=== PATIENT | female | born 1975 | race Caucasian/White ===

== ENCOUNTER 2021-02-10 13:43 | Outpatient (REF) | payer MEDICAID, SELFPAY | END 2021-02-10 13:44 | disposition home or self-care (01) | LOC: HO.LAB 13:43 | PROVIDERS: Visit Provider Internal Medicine | DX: Z20.822 Contact with and (suspected) exposure to COVID-19 (principal) | CPT/HCPCS: C9803; U0003; U0005 ==

== ENCOUNTER 2021-04-30 15:34 | Outpatient (REF) | payer MEDICAID, SELFPAY ==
--- NOTE | ~2021-04-30 | XR_ITS ---
EXAMINATION: XR LUMBOSACRAL SPINE CLINICAL INFORMATION: Low back pain, unspecified COMPARISON: CT 06/19/2018 TECHNIQUE: Bilateral oblique, AP and lateral views of the lumbar spine with an additional coned down lateral spot view of the lumbosacral junction. FINDINGS: Hypoplastic bilateral 12th ribs are present. There are then 4 nonrib-bearing lumbar type vertebral bodies. There is transitional lumbosacral anatomy with a prominent left, mildly prominent right transverse process. The left transverse process forms a pseudoarticulation with the sacrum which can be a pain generator. Normal sagittal alignment. Vertebral body and disc heights are maintained without evidence of compression fracture. There is lower lumbar facet arthropathy most notable at L4-L5 and L5-S1. No pars defect seen on oblique views. XR/XR lumbar spine 4V min IMPRESSION: Transitional anatomy as described above. Recommend careful anatomic localization prior to any intervention or surgery. No acute osseous abnormality. Lower lumbar facet arthropathy at L4-L5 and L5-S1. Findings are similar to the prior study 06/19/2018.
== END 2021-04-30 15:35 | disposition home or self-care (01) ==
LOC: HO.XRAY 15:34
PROVIDERS: PCP Nurse Practitioner Family; Visit Provider Nurse Practitioner Family
DX: M54.50 Low back pain, unspecified (principal)
CPT/HCPCS: 72110

== ENCOUNTER 2021-06-27 13:06 | Emergency (ER) | payer MEDICAID, SELFPAY ==
--- NOTE | ~2021-06-27 | CT_ITS ---
EXAMINATION: CT head/brain wo con, CT cervical spine wo con INDICATION INFORMATION: Reason for Exam numbness right arm COMPARISON: None TECHNIQUE: Separate noncontrast CT examinations of the head and cervical spine were performed. Coronal and sagittal images were created for each examination at the technologist workstation. This CT examination was performed using dose optimization techniques as appropriate, variously including the following: *Automated exposure control *Adjustment of mA and/or kV according to patient size (this includes techniques or standardized protocols for targeted exams where dose is matched to indication/reason for exam; i.e. extremities or head) *Use of iterative reconstruction technique DLP: 1550 mGy-cm FINDINGS: Head: No acute osseous or soft tissue abnormality. The mastoid air cells and visualized portions of the paranasal sinuses are well aerated. There is no evidence of acute intracranial hemorrhage or territorial infarction. No abnormal mass effect or midline shift is seen. Clark to white matter differentiation is well preserved. No extra-axial fluid collections are identified. No hydrocephalus. Proportional prominence of the ventricles and sulcal spaces is consistent with mild volume loss. Cervical spine: There is no evidence of acute cervical spine fracture. Vertebral bodies remain normal in height. Loss of the usual cervical spine lordosis. Disc space heights are maintained. No pre- or paravertebral soft tissue abnormality is identified. Visualized portions of the lung apices are unremarkable. The thyroid gland is unremarkable. CT/CT head/brain wo con IMPRESSION: 1. No acute intracranial abnormality. 2. No cervical spine fracture. 3. Mild global parenchymal volume loss.
--- NOTE | ~2021-06-27 | XR_ITS ---
EXAMINATION: XR chest 2V, XR shoulder RT min 2V CLINICAL INFORMATION: Chest wall pain in right shoulder pain COMPARISON: None. TECHNIQUE: PA and lateral radiographs of the chest were obtained. 4 views of the right shoulder. FINDINGS: No focal consolidation or mass. No pleural effusion or pneumothorax. Normal pulmonary vascularity. Normal heart size. Mild degenerative changes of the spine. There is degenerative arthrosis of the acromioclavicular joints bilaterally, right greater than left. The right shoulder is intact with no fracture or dislocation seen. XR/XR chest 2V IMPRESSION: No acute pulmonary disease. Mild degenerative changes of the bilateral shoulders with no acute osseous abnormality.
--- NOTE | ~2021-06-27 | XR_ITS ---
EXAMINATION: XR chest 2V, XR shoulder RT min 2V CLINICAL INFORMATION: Chest wall pain in right shoulder pain COMPARISON: None. TECHNIQUE: PA and lateral radiographs of the chest were obtained. 4 views of the right shoulder. FINDINGS: No focal consolidation or mass. No pleural effusion or pneumothorax. Normal pulmonary vascularity. Normal heart size. Mild degenerative changes of the spine. There is degenerative arthrosis of the acromioclavicular joints bilaterally, right greater than left. The right shoulder is intact with no fracture or dislocation seen. XR/XR shoulder RT min 2V IMPRESSION: No acute pulmonary disease. Mild degenerative changes of the bilateral shoulders with no acute osseous abnormality.
--- NOTE | ~2021-06-27 | CT_ITS ---
EXAMINATION: CT head/brain wo con, CT cervical spine wo con INDICATION INFORMATION: Reason for Exam numbness right arm COMPARISON: None TECHNIQUE: Separate noncontrast CT examinations of the head and cervical spine were performed. Coronal and sagittal images were created for each examination at the technologist workstation. This CT examination was performed using dose optimization techniques as appropriate, variously including the following: *Automated exposure control *Adjustment of mA and/or kV according to patient size (this includes techniques or standardized protocols for targeted exams where dose is matched to indication/reason for exam; i.e. extremities or head) *Use of iterative reconstruction technique DLP: 1550 mGy-cm FINDINGS: Head: No acute osseous or soft tissue abnormality. The mastoid air cells and visualized portions of the paranasal sinuses are well aerated. There is no evidence of acute intracranial hemorrhage or territorial infarction. No abnormal mass effect or midline shift is seen. Clark to white matter differentiation is well preserved. No extra-axial fluid collections are identified. No hydrocephalus. Proportional prominence of the ventricles and sulcal spaces is consistent with mild volume loss. Cervical spine: There is no evidence of acute cervical spine fracture. Vertebral bodies remain normal in height. Loss of the usual cervical spine lordosis. Disc space heights are maintained. No pre- or paravertebral soft tissue abnormality is identified. Visualized portions of the lung apices are unremarkable. The thyroid gland is unremarkable. CT/CT cervical spine wo con IMPRESSION: 1. No acute intracranial abnormality. 2. No cervical spine fracture. 3. Mild global parenchymal volume loss.
--- NOTE | 2021-06-27 13:24 | ECG_ITS ---
Test Reason : CHEST PAIN Blood Pressure : / mmHG Vent. Rate : 065 BPM Atrial Rate : 065 BPM P-R Int : 138 ms QRS Dur : 106 ms QT Int : 420 ms P-R-T Axes : 049 -16 051 degrees QTc Int : 436 ms Normal sinus rhythm Moderate voltage criteria for LVH, may be normal variant ( R in aVL , Fran product ) Nonspecific T wave abnormality Abnormal ECG When compared with ECG of 04-JAN-2019 11:04, Nonspecific T wave abnormality now evident in Lateral leads Referred By: Generic ED Physician Electronically Signed By:Rubin Serna
[2021-06-27 13:30] VITALS: BP 216/123; PULSE 74; RESP 16; TEMP 36.6; O2SAT 99
[2021-06-27 14:12] VITALS: BP 190/132; PULSE 75; RESP 16; TEMP 36.6; O2SAT 100; BMI 52.0
[2021-06-27 16:00] VITALS: BP 192/102; PULSE 66; RESP 16; TEMP 36.6; O2SAT 99
--- NOTE | 2021-06-27 16:06 | ED.GENADULT ---
HPI - General Adult General Chief complaint: General Medical Stated complaint: chest/shoulder pain - HBP Time Seen by Provider: 06/27/21 16:06 Source: patient Mode of arrival: ambulatory Limitations: language barrier History of Present Illness HPI narrative: 45-year-old female presents for 4 days of pain in her right neck, that radiates to her right shoulder, and radiates to her right side of her chest. Patient states she is numb in her right thumb and the right side of her chest is numb. If she turns her head quickly she has more pain on the right side of her neck radiating into her arm. No nausea, diaphoresis, shortness of breath, fever, cough, dysuria, lightheadedness, dizziness, abdominal pain, vomiting, diarrhea. Patient is concerned her blood pressure is high, it is 190/132 here Mild headache, no blurry vision. Related Data Previous Rx's Medication Instructions Recorded amlodipine 5 mg tablet 5 mg PO DAILY 30 Days #30 tab 06/27/21 potassium chloride 20 mEq oral 20 meq PO DAILY 30 Days #30 ea 06/27/21 packet prednisone 20 mg tablet 60 mg PO DAILY 5 Days #15 tab 06/27/21 Allergies Allergy/AdvReac Type Severity Reaction Status Date / Time No Known Allergies Allergy Unverified 01/31/20 19:26 [No Known Allergies*] Review of Systems Constitutional: Constitutional: Denies body ache(s), Denies chills, Denies fatigue, Denies fever(s), Denies headache(s), Denies malaise and Denies weakness Eyes: Eyes: Denies blurry vision and Denies diplopia ENT: Denies vertigo, Denies dizziness, Denies otalgia, Denies headache(s), Denies mouth pain, Reports neck pain, Denies post nasal drip, Denies sinus pain, Denies sinus pressure, Denies sore throat and Denies throat swelling Cardiovascular: Cardiovascular: Denies chest pain, Denies syncope, Denies leg edema, Denies lightheadedness, Denies Loss of Consciousness, Denies palpitations and Denies dyspnea Respiratory: Respiratory: Denies chest congestion, Denies cough and Denies dyspnea Gastrointestinal: Gastrointestinal: Denies abdominal pain, Denies hematochezia, Denies constipation, Denies diarrhea, Denies nausea and Denies vomiting Genitourinary: Genitourinary: Reports no additional female genitourinary complaints Musculoskeletal: Musculoskeletal: Reports arthralgias, Reports neck pain, Reports numbness, Reports radiating pain into limb and Reports tingling Neurologic: Denies confusion, Denies vertigo, Denies dizziness, Denies syncope, Denies headache(s), Reports numbness, Reports radicular pain, Reports Sensory deficit (Neuro) (more numb on right arm), Reports tingling and Denies weakness Psychiatric: Psychiatric: Denies anxiety, Denies confusion and Denies depression Endocrine: Endocrine: Denies fatigue and Denies palpitations Allergic/Immunologic: Allergic/Immunologic: Denies throat swelling PMFSH Past Medical History Medical History Anemia Prediabetes Vitamin D deficiency Social History Social History Patient Tobacco Use Status: Never used Tobacco Use of substances other than those prescribed or required for medical reasons: No Advance Directives: No Advance Directives Information Provided: No Patient : No Physical Exam ED Vital Signs: Vital Signs - 24 hr 06/27/21 13:30 06/27/21 14:12 06/27/21 16:00 Temperature 97.9 F 98 F 97.8 F Pulse Rate 74 75 66 Respiratory Rate 16 16 16 Blood Pressure 216/123 H 190/132 H 192/102 H Pulse Oximetry 99 100 99 06/27/21 18:00 Temperature 97.8 F Pulse Rate 67 Respiratory Rate 16 Blood Pressure 185/97 H Pulse Oximetry 99 BMI result Body Mass Index 52.0 Const General: comfortable, alert and awake; No confusion Nutritional Appearance: obese morbidly obese Orientation/consciousness: patient oriented x3 and No confusion HENMI Head: Yes normal to inspection, Yes No palpable skull fracture present, Yes normocephalic and Yes atraumatic Ears: hearing grossly normal bilaterally General nose exam: Normal external nose present Face and sinus: Yes normal facial exam Mouth: Normal oral and palatal mucosa present Throat: Yes posterior oropharynx normal Eyes Pupils: Equal, round and reactive pupils present EOM: EOMs intact bilaterally Neck Other: when I push on patient's neck, and she truns to right, pt experiences pain and numbness in right arm Neck: Yes normal visual inspection, Yes full ROM, Yes no meningeal signs, Yes trachea midline and Yes supple Resp Effort & Inspection: normal respiratory effort Auscultation: clear to auscultation bilaterally, no crackles, no rales, no rhonchi and no wheezes Cardio Rate: regular rate Rhythm: regular rhythm Heart sounds: S1 normal heart sound present and S2 normal heart sound present General: Yes no CVA tenderness Back/Spine/Pelvis Back: no CVA tenderness Cervical Spine: normal cervical lordosis, cervical ROM normal, cervical spasm (right side), No Cervical spine tenderness and No step off deformity Thoracic/Lumbar Spine: No thoracic spinal tenderness and No lumbar spinal tenderness Neuro General: patient oriented x3, no meningeal signs and No confusion Cranial nerves: Yes Equal, round and reactive pupils present Sensory Exam: Sensory deficit (Neuro) (more numb on right arm) Extrem Right upper extremity: normal to inspection, full ROM, normal capillary refill and shoulder/upper arm Details: tenderness (entire right shoulder tender) and normal ROM; Negative for no crepitus, no deformity and no unusual warmth Course Course Course Narrative: 45-year-old female who presents for 4 days of right-sided neck pain with numbness and pain in her right arm. Pain is worse when she turns her head. Positive Spurling's sign. Numbness extends to her right upper chest. On exam, patient is hypertensive, 190/30. She is neurologically intact. Patient has a palpable right neck muscle spasm, which is tender to palpate. Patient is tender over the right side of her chest, and is tender over her entire right shoulder. Patient has reduced sensation in her right arm. Patient can range her right arm 90 degrees, she can do scarf sign without pain. EKG is unremarkable, x-ray shoulder and chest is normal. Will get labs, troponin, CT cervical spine and head. Suspect cervical radiculopathy, but must rule out cardiac etiology. Will treat patient's hypertension with pain medication. If hypertension does not resolve, will give amlodipine and start patient on unloaded pain with follow-up with her primary care provider. XR/XR shoulder RT min 2V IMPRESSION: No acute pulmonary disease. Mild degenerative changes of the bilateral shoulders with no acute osseous abnormality.? Reevaluation(s) Reevaluation #1: After pain medication, BP now 192/102. Repeat BP 185/97 Patient has a potassium of 3.2. Repleted with oral potassium here. Prescribed potassium supplements. Provided 5 mg of amlodipine, Counseled patient to follow-up with her primary care provider for her blood pressure, and to take her BP at home and record it. Counseled patient return to emergency room if she had chest pain, shortness of breath, sudden severe headache, visual changes. Will treat cervical radiculopathy with prednisone Patient verbalized agreement and understanding of the plan. Medical Decision Making Lab Data Lab results reviewed: Yes I reviewed the patient's lab results. Result diagrams: 06/27/21 16:22 06/27/21 16: Labs: Lab Results 06/27/21 06/27/21 06/27/21 Range/Units 16:22 16:22 16:22 WBC 10.4 (4.8-10.8) X10*3/uL RBC 4.59 (4.20-5.50) X10*6/uL Hgb 11.6 L (12.0-16.0) g/dl Hct 35.6 L (37.0-47.0) % MCV 77.6 L (80.0-98.0) fL MCH 25.3 L (27.0-33.0) pg MCHC 32.6 (31.0-35.0) g/dl RDW 14.7 (11.0-16.0) % Plt Count 273 (160-400) X10*3/uL MPV 10.1 (9.4-12.3) fL Immature Gran % (Auto) 0.2 (0.0-0.4) % Neut % (Auto) 56.8 (45-73) % Lymph % (Auto) 34.6 (20-40) % [place] % (Auto) 5.6 (2-11) % Eos % (Auto) 2.3 (0-4) % Baso % (Auto) 0.5 (0-2) % Lymph # (Auto) 3.6 (1.2-4.9) X10*3/uL [place] # (Auto) 0.6 (0.1-1.2) X10*3/uL Eos # (Auto) 0.2 (0.0-0.4) X10*3/uL Baso # (Auto) 0.1 (0.0-0.2) X10*3/uL Abs Immat Gran (auto) 0.02 (0.00-0.03) X10*3/uL Absolute Neuts (auto) 5.9 (2.0-8.3) x10*3/uL Absolute Nucleated RBC 0.000 (0.0-0.012) X10*3/uL Nucleated RBC % (auto) 0.0 (0.0-0.2) /100WBC Sodium 139 (135-145) mmol/L Potassium 3.2 L (3.3-5.1) mmol/L Chloride 103 (96-108) mmol/L Carbon Dioxide 28 (22-29) mmol/L Anion Gap 11 L (12-20) BUN 15 (9-16) mg/dL Creatinine 0.79 (0.5-1.4) mg/dL Estim Creat Clear Calc 129.1 Estimated GFR > 60 Random Glucose 91 (60-115) mg/dL Calcium 9.0 (8.4-10.2) mg/dL Total Bilirubin 0.4 (0.0-1.0) mg/dL AST 20 (5-31) U/L ALT 18 (0-31) U/L Alkaline Phosphatase 107 (39-117) U/L Troponin I High Sens 6.9 (<3.5-17.0) ng/L Total Protein 6.9 (6.5-8.0) g/dL Albumin 3.7 (3.5-5.0) g/dL Beta HCG, Quant < 2 mIU/mL ECG Data Interpretation: Sinus at a rate of 65, CA 138, QRS 106, QTC 436, normal axis, no ST elevations or depressions, non specific T-wave abnormality Discharge Plan Discharge Clinical Impression: Cervical radiculopathy, Acute hypokalemia, Hypertension Patient Disposition: Home, Self-Care Instructions: Hypokalemia (ED), Cervical Radiculopathy (ED), Hypertension (ED) Additional Instructions: Please call your primary care provider for follow-up appointment on Tuesday. I have prescribed potassium supplement. Please eat foods high in potassium, such as orange juice, bananas, avocados. Your potassium was low here today, you must get a lab draw within the next week to follow-up on your potassium level with your primary care provider. In addition, start amlodipine, take 1 pill for your blood pressure once a day, and see your primary care provider next week. Please continue to take your blood pressure and monitor it, if you have severe headache, visual changes, chest pain, shortness of breath, please return to the emergency room. For in the pain and numbness in your neck radiating down your arms, I have prescribed prednisone. Hopefully this will reduce the pain and numbness. Also follow-up with your primary care provider for this. Llame a alfaro proveedor de atenci?n primaria para sydney saima de seguimiento el . Le he recetado un suplemento de potasio. Coma alimentos ricos en potasio, yecenia jugo de naranja, pl?tanos, aguacates. Alfaro nivel de potasio estuvo bajo aqu? hoy, debe hacerse sydney prueba de laboratorio dentro de la pr?xima semana para hacer un seguimiento de alfaro nivel de potasio con alfaro proveedor de atenci?n primaria. Adem?s, comience con amlodipina, tome 1 pastilla para la presi?n arterial sydney vez al d?a y consulte a alfaro proveedor de atenci?n primaria la pr?xima semana. Contin?e khalif?ndose la presi?n arterial y control?ndola, si tiene dolor de abigail intenso, cambios visuales, dolor en el pecho, dificultad para respirar, regrese a la meka de emergencias. Para el dolor y el entumecimiento de tu sydney que se irradia hacia tus brazos, te he recetado prednisona. Con suerte, esto reducir? el dolor y el entumecimiento. Tambi?n peg un seguimiento con alfaro proveedor de atenci?n primaria para esto. Prescriptions: New amlodipine 5 mg tablet 5 mg PO DAILY 30 Days Qty: 30 0RF prednisone 20 mg tablet 60 mg PO DAILY 5 Days Qty: 15 0RF potassium chloride 20 mEq packet 20 meq PO DAILY 30 Days Qty: 30 0RF Stand Alone Forms: Work/School Release Print Language: Thai
--- NOTE | 2021-06-27 16:12 | PC.NURSE ---
ANGELA MCKEON IS AWARE OF PATIENT HIGH BLOOD PRESSURE .
[2021-06-27 16:26] LABS: MANUAL DIFF FLAG NO
[2021-06-27 16:31] LABS: Basophils Absolute Auto 0.1 X10*3/uL (0.0-0.2); Basophils Percent Auto 0.5 % (0-2); Eosinophils Absolute Auto 0.2 X10*3/uL (0.0-0.4); Eosinophils Percent Auto 2.3 % (0-4); Hematocrit 35.6 % (37.0-47.0); Hemoglobin 11.6 g/dl (12.0-16.0); Imm Gran Abs Auto 0.02 X10*3/uL (0.00-0.03); Imm Gran Pct Auto 0.2 % (0.0-0.4); Lymphocytes Absolute Auto 3.6 X10*3/uL (1.2-4.9); Lymphocytes Percent Auto 34.6 % (20-40); Mean Corpuscular HGB Conc 32.6 g/dl (31.0-35.0); Mean Corpuscular Hemoglobin 25.3 pg (27.0-33.0); Mean Corpuscular Volume 77.6 fL (80.0-98.0); Mean Platelet Volume 10.1 fL (9.4-12.3); Monocytes Absolute Auto 0.6 X10*3/uL (0.1-1.2); Monocytes Percent Auto 5.6 % (2-11); Neutrophils Absolute Auto 5.9 x10*3/uL (2.0-8.3); Neutrophils Percent Auto 56.8 % (45-73); Platelet Count 273 X10*3/uL (160-400); Red Blood Count 4.59 X10*6/uL (4.20-5.50); Red Cell Distribution Width 14.7 % (11.0-16.0); White Blood Count 10.4 X10*3/uL (4.8-10.8)
[2021-06-27] MEDS: oxyCODONE HCl Immed Release 5 MG TABLET PO (16:39)
[2021-06-27 16:46] LABS: Alanine Aminotransferase 18 U/L (0-31); Albumin Level 3.7 g/dL (3.5-5.0); Alkaline Phosphatase 107 U/L (39-117); Anion Gap 11 (12-20); Aspartate Amino Transferase 20 U/L (5-31); Bilirubin Total 0.4 mg/dL (0.0-1.0); Blood Urea Nitrogen 15 mg/dL (9-16); Carbon Dioxide 28 mmol/L (22-29); Chloride 103 mmol/L (96-108); Creatinine Clr Calc Pharmacy 129.1; Estimated Glomerular Filt Rate > 60; Glucose Random 91 mg/dL (60-115); Potassium 3.2 mmol/L (3.3-5.1); Sodium 139 mmol/L (135-145); Total Protein 6.9 g/dL (6.5-8.0)
[2021-06-27 16:49] LABS: Troponin-I High Sensitivity 6.9 ng/L (<3.5-17.0)
[2021-06-27 16:52] LABS: HCG Quantitative < 2 mIU/mL
[2021-06-27 18:00] VITALS: BP 185/97; PULSE 67; RESP 16; TEMP 36.6; O2SAT 99
[2021-06-27] MEDS: predniSONE 20 MG TABLET 60 MG PO (19:00)
[2021-06-27] MEDS: amLODIPine Besylate 5 MG TABLET PO (19:01)
[2021-06-27] MEDS: Potassium Chloride Packet 20 MEQ PACKET 40 MEQ PO (19:01)
[2021-06-27 19:09] VITALS: BP 183/108; PULSE 89; RESP 16; O2SAT 97
--- NOTE | 2021-06-27 19:10 | PC.NURSE ---
pt medicated as per emar for htn and low K+. Nepali interpretor at bedside for d/c instructions. pt left ed ambulatory with steady even gait to wr.
== END 2021-06-27 19:13 | disposition home or self-care (01) ==
PROVIDERS: Physician Assistant; Emergency Provider Emergency Medicine Emergency Medical Services; PCP Nurse Practitioner Family
DX: M54.12 Radiculopathy, cervical region (principal); E87.6 Hypokalemia; I10 Essential (primary) hypertension; M54.2 Cervicalgia
CPT/HCPCS: 36415; 70450; 71046; 72125; 73030; 80053; 84484; 84702; 85025; 93005; 99284